=== PATIENT | female | born 1985 | race Caucasian/White ===

== ENCOUNTER 2016-09-20 09:13 | Emergency (ER) | payer BC ==
[2016-09-20 09:27] VITALS: BP 134/78; BMI 31.4
[2016-09-20] MEDS ORDERED: TORADOL 30 MG VIAL IVP ONE ×2 (09:28→12:25)
[2016-09-20] MEDS ORDERED: NS 1000 ML 1,000 ML IV ONE (09:28)
[2016-09-20] MEDS ORDERED: ZOFRAN INJ 4 MG VIAL IVP ONE (09:28)
[2016-09-20] MEDS ORDERED: MORPHINE SULFATE INJ 4 MG IVP ONE (09:30)
--- NOTE | 2016-09-20 09:31 | DR.GENAD ---
HPI - PCP Primary Care Physician: RUDY - Complaint/Symptoms Chief Complaint Doctors Comments: Agree with statement Chief Complaint:: PT C/O RT FLNAK PAIN RADIATING AROUND TO RT LOWER QUAD. PT STATES SHE STARTED WITH A UTI YESTERDAY AND HAS BEEN TAKING AZO. PT STATES SHE HAS A HX OF KIDNEY STONES. Self Treatment fo Chief Complaint: TORADOL 10 MG - Source History Provided: Patient - Mode of Arrival Mode of Arrival: Ambulatory - Timing Onset of Chief Complaint: 09/20/16 PMH - PMH Past Medical History: Yes Past Medical History: Kidney Stones Past Surgical History: Yes Surgical History: Lithotripsy - Family History History of Family Medical Conditions: No - Social History Does any household member use tobacco: No Alcohol Use: None Do you use any recreational Drugs:: No Lives With: Family Lives Where: Home - infectious screening In the last 2 months have you had wt loss of >10#?: NO Have you had fever, night sweats or hemotysis?: No Have you traveled outside the country in the last 6 months?: No Isolation: Standard ROS - Review of Systems Constitutional: No Symptoms Reported Eyes: No Symptoms Reported ENTM: No Symptoms Reported Respiratoy: No Symptoms Reported Cardiovascular: No Symptoms Reported Gastrointestinal/Abdominal: No Symptoms Reported Genitourinary: No Symptoms Reported Neurological: No Symptoms Reported Musculoskeletal: No Symptoms Reported Integumentary: No Symptoms Reported Hematologic/Lymphatic: No Symptoms Reported Endocrine: No Symptoms Reported Psychiatric: No Symptoms Reported All Other Systems: Reviewed and Negative PE - Vital Signs Vitals: Temperature 98.7 F Pulse Rate 78 Respiratory Rate 20 Blood Pressure 134/78 O2 Sat by Pulse Oximetry 96 - General General Appearance: Alert, In No Apparent Distress - Head Head Exam: Normal Inspection - Eyes Eye exam: Normal Appearance, PERRL - ENT ENT Exam: Normal Exam, Normal Oropharynx External Ear Exam: Normal External Inspection TM/Canal Exam: Bilateral Normal Nose Exam: Normal Nose Exam Mouth Exam: Normal Inspection Throat Exam: Normal Inspection - Neck Neck Exam: Normal Inspection - Chest Chest Inspection: Normal Inspection - Respiratory Respiratory Exam: Normal Lung Sounds Bilat Respiratory Exam: Bilateral Clear to Auscultation - Cardiovascular Cardiovascular Exam: Regular Rate - Abdominal Exam Abdominal Exam: Normal Inspection Abdominal Tenderness: RLQ - Extremities Extremities Exam: Normal Inspection, Full ROM - Psychiatric Psychiatric Exam: Normal Affect, Normal Mood - Skin Skin Exam: Warm, Dry, Intact ROR - Labs Reviewed Laboratory: HCG, Qual Negative <10 mIU/mL 09/20/16 10:35 Specimen Type Clean catch urine 09/20/16 09:31 Urine Color [place] (YELLOW) 09/20/16 09:31 Urine Appearance Slightly hazy (CLEAR) 09/20/16 09:31 Urine pH Cancelled 09/20/16 09:22 Ur Specific [place] Cancelled 09/20/16 09:22 Urine Protein Cancelled 09/20/16 09:22 Urine Glucose (UA) Cancelled 09/20/16 09:22 Urine Ketones Cancelled 09/20/16 09:22 Urine Occult Blood Cancelled 09/20/16 09:22 Urine Nitrite Cancelled 09/20/16 09:22 Urine Bilirubin Cancelled 09/20/16 09:22 Urine Urobilinogen Cancelled 09/20/16 09:22 Ur Leukocyte Esterase Cancelled 09/20/16 09:22 Urine RBC 0-2 /HPF (NEGATIVE) 09/20/16 09:31 Urine WBC 0-4 /HPF (NEGATIVE) 09/20/16 09:31 Ur Squamous Epith Cells Few /HPF (NEGATIVE) 09/20/16 09:31 Ur Transition Epith Cell Cancelled 09/20/16 09:22 Ur Renal Epithelial Cell Cancelled 09/20/16 09:22 Calcium Oxalate Crystal Cancelled 09/20/16 09:22 Cystine Crystals Cancelled 09/20/16 09:22 Uric Acid Crystals Cancelled 09/20/16 09:22 Triple Phos Crystals Cancelled 09/20/16 09:22 Tyrosine Crystals Cancelled 09/20/16 09:22 Other Crystals Cancelled 09/20/16 09:22 Amorphous Sediment 2+ /HPF (NEGATIVE) 09/20/16 09:31 Urine Bacteria Trace /HPF (Negative) 09/20/16 09:31 Hyaline Casts Cancelled 09/20/16 09:22 Granular Casts Cancelled 09/20/16 09:22 Fine Granular Casts Cancelled 09/20/16 09:22 Coarse Granular Casts Cancelled 09/20/16 09:22 WBC Casts Cancelled 09/20/16 09:22 Other Casts Cancelled 09/20/16 09:22 Urine Mucus Cancelled 09/20/16 09:22 Urine Trichomonas Cancelled 09/20/16 09:22 Urine Yeast Cancelled 09/20/16 09:22 Urine Sperm Cancelled 09/20/16 09:22 Ur Culture Indicated? Cancelled 09/20/16 09:22 Micro UA Comment Unable to perform (-) 09/20/16 09:31 - XRAY XRAY Interpreted by: Radiologist (CT ABD/PEL Examination of the kidneys demonstrates a l mm right distal obstructing renal stone with moderate right sided hydroureter and mild right sided hydronephrosis. There is also a tiny nonobstructing l mm right inferior pole renta stone also observed. There is a large quantity of colonic stool. No other renal,bladder, or abdomenopelvic abnormalities are seen.) - Diagnosis Discharge Problem: Ureteral calculus of kidney transplant, Hydroureter on right Hydronephrosis Qualifiers: Hydronephrosis type: with renal calculous obstruction Qualified Code(s): N13.2 - Hydronephrosis with renal and ureteral calculous obstruction - Discharge Plan Condition: Stable - Follow ups/Referrals Follow ups/Referrals: FAWN GRANT [Primary Care Provider] - 3 days - Instructions
[2016-09-20] MEDS ORDERED: MORPHINE SULFATE INJ 4 MG ONE (09:32)
[2016-09-20] MEDS ORDERED: NS 1000 ML 1,000 ML ONE (09:32)
[2016-09-20] MEDS ORDERED: TORADOL 30 MG VIAL ONE ×2 (09:32→12:23)
[2016-09-20] MEDS ORDERED: ZOFRAN INJ 4 MG VIAL ONE (09:32)
[2016-09-20 09:50] LABS: APPEARANCE,URINE SLIGHTLY HAZY (CLEAR); COLOR,URINE ORANGE (YELLOW); RBC,URINE 0-2 /HPF (NEGATIVE)
[2016-09-20 09:51] LABS: AMORPHOUS SEDIMENT,UR 2+ /HPF (NEGATIVE); BACTERIA,URINE Trace /HPF (Negative); SQUAMOUS EPITHELIAL CELL,UR FEW /HPF (NEGATIVE)
[2016-09-20 11:09] LABS: SERUM PREGNANCY TEST, QUAL NEGATIVE <10 mIU/mL
--- NOTE | 2016-09-20 12:14 | CT ---
History: Renal colic and flank pain. Concern for renal stone. Exam: Non-contrast CT examination of the abdomen \T\ pelvis. Technique: Multiple CT images of the abdomen and pelvis were obtained from the lung bases to the pub ic symphysis without the IV administration of radiopaque contrast. Findings: The lung bases are clear. The heart is normal in size without a pericardial effusion. The liver, gal lbladder, adrenal glands, and spleen are unremarkable on these non contrasted images. There is no pn eumoperitoneum or hemoperitoneum seen. There is no bowel obstruction, large hernia defect, or acute mesenteric inflammatory change. There is no evidence for colitis, diverticulitis, or appendicitis. N o loculated intraperitoneal fluid collection is seen. Examination of the kidneys demonstrates a 1 mi llimeter right distal obstructing renal stone with moderate right-sided hydroureter and mild right-s ided hydronephrosis. There is no CT evidence for a fornix rupture. There is also a tiny nonobstructi ng 1 millimeter right inferior pole renal stone also observed. There is a large quantity of colonic stool. No other renal, bladder, or abdominopelvic abnormalities are seen. No lytic bony lesions or a cute fractures are seen. Impression: Obstructing right distal ureteral 1 millimeter stone just proximal to the UVJ without CT evidence fo r a fornix rupture. Normal appendix. Large quantity of colonic stool. Reported By:
== END 2016-09-20 12:41 | disposition home or self-care (01) ==
LOC: ER 09:19
DX: N13.2 Hydronephrosis with renal and ureteral calculous obstruction (principal); Z94.0 Kidney transplant status; N13.4 Hydroureter; R10.31 Right lower quadrant pain
CPT/HCPCS: 36415; 74176; 81015; 84703; 96365; 96374; 96375; 99283; A4222; J1885; J2270; J2405